=== PATIENT | female | born 1970 | race Caucasian/White ===

== ENCOUNTER → 2017-07-03 | Outpatient (CLI) | payer OTHER | END | disposition home or self-care (01) | LOC: RAH 14:38 | PROVIDERS: ATTEND Orthopaedic Surgery | DX: M77.11 Lateral epicondylitis, right elbow (principal); M77.01 Medial epicondylitis, right elbow; M25.421 Effusion, right elbow | CPT/HCPCS: 73221 ==

== ENCOUNTER → 2020-10-05 | Outpatient (CLI) | payer BC | END | disposition home or self-care (01) | LOC: RAH 15:24 | PROVIDERS: ATTEND Physical Medicine & Rehabilitation | DX: M47.27 Other spondylosis with radiculopathy, lumbosacral region (principal); M25.78 Osteophyte, vertebrae; M85.88 Other specified disorders of bone density and structure, other site | CPT/HCPCS: 72114 ==

== ENCOUNTER → 2020-11-03 | Outpatient (CLI) | payer BC | END | disposition home or self-care (01) | LOC: RAH 15:04 | PROVIDERS: ATTEND Physical Medicine & Rehabilitation | DX: M51.17 Intervertebral disc disorders with radiculopathy, lumbosacral region (principal) | CPT/HCPCS: 72148 ==

== ENCOUNTER 2021-07-20 09:00 | Observation (INO) | payer BC ==
[~2021-07-20] VITALS: Ht 167.6 cm; Wt 61.2 kg
[2021-07-20 09:59] VITALS: BP 128/71
[2021-07-20 11:56] LABS: BASOPHILS % (AUTO) 0.9 % (0.0-5.0); EOSINOPHILS % (AUTO) 0.2 % (0.0-8.0); HEMATOCRIT 45.7 % (36-48); LYMPHOCYTES % (AUTO) 26.5 % (21.0-51.0); MEAN CORPUSCULAR HEMOGLOBIN 31.8 pg (27.0-33.0); MEAN CORPUSCULAR HGB CONC 32.4 g/dL (32.0-36.0); MEAN CORPUSCULAR VOLUME 98.3 fL (79-99); MONOCYTES % (AUTO) 4.9 % (3.0-13.0); NEUTROPHILS % (AUTO) 67.3 % (40.0-77.0); PLATELET COUNT (AUTO) 223 K/uL (130-400); RED BLOOD CELL COUNT(AUTO) 4.65 MIL/uL (4.00-5.50); RED CELL DISTRIBUTION WIDTH 13.6 % (11.0-15.5); WHITE BLOOD COUNT (AUTO) 9.8 K/uL (4.8-10.8)
[2021-07-20 11:58] LABS: CREATININE 0.7 mg/dL (0.5-1.5); POTASSIUM 4.9 mmol/L (3.5-5.1)
[2021-07-21] MEDS ORDERED: SERT-439 PO (10:15)
[2021-07-22] VITALS (21 sets, daily range): BP systolic 100–140; BP diastolic 59–78
[2021-07-22] MEDS ORDERED: CEFAZOLIN SODIUM 2 GM VIAL IV SCH (06:00)
[2021-07-22] MEDS ORDERED: CELE50CA PO (06:43)
[2021-07-22] MEDS ORDERED: PREG75 PO (06:43)
[2021-07-22] MEDS ORDERED: LACTATED RINGERS 1000ML 1,000 ML IV ONE (06:46)
[2021-07-22] MEDS ORDERED: CEFAZOLIN SODIUM 1 GM VIAL ONE ×2 (06:46→11:21)
[2021-07-22] MEDS ORDERED: THROMBIN-JMI 20000 UNIT KIT TP ONE (11:21)
[2021-07-22] MEDS ORDERED: BUPIVACAINE/EPI/PF 0.25% 30ML VIAL IJ ONE (11:21)
[2021-07-22] MEDS ORDERED: SUCCINYLCHOLINE CHLORIDE 20 MG/ML 10 ML VIAL ONE (12:27)
[2021-07-22] MEDS ORDERED: LIDOCAINE PF 100MG/5ML (2%) SYRINGE 5ML ONE (12:27)
[2021-07-22] MEDS ORDERED: ROCURONIUM 10MG/1ML SYR 10 MG/ML ML ONE ×2 (12:28→13:47)
[2021-07-22] MEDS ORDERED: FENTANYL CITRATE PF 50 MCG/1 ML 2ML VIAL ONE ×2 (12:28→13:55)
[2021-07-22] MEDS ORDERED: PROPOFOL 10 MG/ML 20ML VIAL IV ONE (12:28)
[2021-07-22] MEDS ORDERED: MIDAZOLAM HCL 1 MG/ML 2ML VIAL ONE (12:28)
[2021-07-22] MEDS ORDERED: DEXAMETHASONE SOD PHOSPHATE 10MG/ML 1ML VIAL ONE (12:29)
[2021-07-22] MEDS ORDERED: ARTIFICIAL TEARS 3.5 GM OINTMENT ONE (12:36)
[2021-07-22] MEDS ORDERED: MORPHINE PF 100MG/10ML AMP IV ONE (13:04)
[2021-07-22] MEDS ORDERED: NEOSTIGMINE 5MG/5ML SYR IV ONE (14:38)
[2021-07-22] MEDS ORDERED: ONDANSETRON 4MG INJ ONE (14:38)
[2021-07-22] MEDS ORDERED: GLYCOPYRROLATE 1 MG/5 ML SYRINGE ONE (14:38)
[2021-07-22] MEDS ORDERED: PROMETHAZINE HCL 25 MG/ML 1ML AMPULE IM PRN (15:00)
[2021-07-22] MEDS ORDERED: 0.9%NACL 10ML VIAL IVP PRN (15:00)
[2021-07-22] MEDS: LACTATED RINGERS 1000ML 1,000 ML IV SCH (19:35)
[2021-07-22] MEDS: DEXAMETHASONE SOD PHOSPHATE 4 MG/ML 1ML VIAL IVP SCH (20:47)
[2021-07-22] MEDS: CEFAZOLIN SODIUM 1 GM VIAL IVP SCH (20:47)
[2021-07-22] MEDS: PREGABALIN 75 MG CAPSULE PO SCH (20:48)
[2021-07-22] MEDS: HYDROCODONE/ACETAMINOPHEN 5/325 MG TAB PO PRN (20:48)
[2021-07-22] MEDS ORDERED: SERTRALINE HCL 50 MG TABLET PO SCH (21:00)
[2021-07-22] MEDS: CELECOXIB 50 MG PO SCH (21:00)
[2021-07-22] MEDS: MORPHINE 2 MG SYG IVP PRN (23:57)
[2021-07-23 00:20] VITALS: BP 103/55
[2021-07-23 01:20] VITALS: BP 104/62
[2021-07-23] MEDS: LACTATED RINGERS 1000ML 1,000 ML IV SCH (03:07)
[2021-07-23] MEDS: HYDROCODONE/ACETAMINOPHEN 5/325 MG TAB PO PRN (03:13)
[2021-07-23] MEDS: DEXAMETHASONE SOD PHOSPHATE 4 MG/ML 1ML VIAL IVP SCH ×2 (03:13→08:57)
[2021-07-23 04:00] VITALS: BP 110/65
[2021-07-23] MEDS: MORPHINE 2 MG SYG IVP PRN ×2 (06:42→09:02)
[2021-07-23] MEDS: CEFAZOLIN SODIUM 1 GM VIAL IVP SCH (06:49)
[2021-07-23 07:30] VITALS: BP 117/65
[2021-07-23] MEDS: PREGABALIN 75 MG CAPSULE PO SCH (08:58)
[2021-07-23] MEDS: CELECOXIB 50 MG PO SCH (08:58)
== END 2021-07-23 11:21 | disposition home or self-care (01) ==
LOC: DAHIP 07-22 06:00 → EDSTATUS 07-22 09:00 → 3DH 07-22 19:30 → 3AH 07-23 02:40
PROVIDERS: ADMIT Neurological Surgery; ATTEND Neurological Surgery
DX: M54.16 Radiculopathy, lumbar region (principal); Z20.822 Contact with and (suspected) exposure to COVID-19; M51.27 Other intervertebral disc displacement, lumbosacral region; Z98.1 Arthrodesis status
CPT/HCPCS: 36415; 63047; 63048; 71045; 72020; 80048; 84703; 85025; 87635; 93005; 96374; 96375; 96376; A4223; A4344; A4510; A4600; A4649 ×3; A4657; A6260; G0378 ×16; J0330; J0690 ×3; J1100 ×5; J2001; J2250; J2274; J2405; J2704; J2710; J3010 ×2; J3490 ×2; J7120 ×3